=== PATIENT | male | born 1970 | race Caucasian/White ===

== ENCOUNTER → 2017-08-06 | Outpatient (CLI) | payer OTHER ==
--- NOTE | ~2017-08-06 | 2DMMODE ---
[facility] [place] [address] 2 D/M-MODE ECHOCARDIOGRAM Name: ARY ANGEL GALE Room #: REG [facility]#: [id number] Admission: 08/06/17 Attend Phys: Tay Torres, Discharge: Date of : 70 Date of Service: 08/06/17 1355 Report #: [id number] THIS REPORT FOR: //name// APPROVED REPORT Study performed: 08/06/2017 14:11:09 EXAM: Comprehensive 2D, Doppler, and color-flow Echocardiogram Patient Location: Out-Patient Status: routine BSA: 2.27 HR: 80 bpm BP: 144/91 mmHg Rhythm: NSR Other Information Study Quality: Adequate Indications Chest Pain Hx: HTN, HLP, obesity, family hx of CAD. 2D Dimensions RVDd: 37.18 mm LVEF(%): 54.91 (>50%) IVSd: 10.96 (7-11mm) LVOT Diam: 22.48 (18-24mm) LVDd: 47.97 mm PWd: 10.83 (7-11mm) Ascending Ao: 33.29 (22-36mm) LVDs: 34.29 (25-40mm) Aortic Root: 35.18 mm Regan's LVEF: 54.91 % Volumes Left Atrial Volume (Systole) Single Plane 4CH: 32.84 mL Single Plane 2CH: 60.15 mL LA ESV Index: 22.00 mL/m2 Aortic Valve AoV Peak Kyler.: 1.37 m/s AO Peak Gr.: 7.46 mmHg LVOT Max P.79 mmHg LVOT Max V: 0.97 m/s SERVANDO Vmax: 2.83 cm2 Mitral Valve E/A Ratio: 1.2 [facility] [place] [address] 2 D/M-MODE ECHOCARDIOGRAM Name: ARY ANGEL HOUSTON Room #: [facility]#: [id number] Admission: 08/06/17 Attend Phys: Tay Torres, Discharge: Date of : 70 Date of Service: 08/06/17 1355 Report #: [id number] MV Decel. Time: 230.60 ms MV E Max Kyler.: 0.71 m/s MV A Kyler.: 0.61 m/s MV PHT: 66.87 ms IVRT: 72.66 ms Pulmonary Valve PV Peak Kyler.: 1.03 m/s PV Peak Gr.: 4.23 mmHg Pulmonary Vein P Vein S: 0.51 m/s P Vein A: 0.31 m/s P Vein D: 0.58 m/s P Vein A Dur.: 93.4 msec P Vein S/D Ratio: 0.88 Tricuspid Valve RAP Estimate: 5.00 mmHg Left Ventricle The left ventricle is normal size. There is normal LV segmental wall motion. There is normal left ventricular wall thickness. Left ventricular systolic function is normal. LVEF is 55-60%. The left ventricular diastolic function is normal. Right Ventricle The right ventricle is normal size. The right ventricular systolic function is normal. Atria The left atrium size is normal. The right atrium size is normal. Aortic Valve The aortic valve is normal in structure. No aortic regurgitation is present. There is no aortic valvular stenosis. Mitral Valve The mitral valve is normal in structure. Trace mitral regurgitation. No evidence of mitral valve stenosis. Tricuspid Valve The tricuspid valve is normal in structure. Trace tricuspid regurgitation. Unable to assess PA pressure. Pulmonic Valve The pulmonary valve is normal in structure. Trace pulmonic regurgitation. [address] [address] 2 D/M-MODE ECHOCARDIOGRAM Name: ARY ANGEL HOUSTON Room #: REG [facility]#: [id number] Admission: 08/06/17 Attend Phys: Tay Torres, Discharge: Date of : 70 Date of Service: 08/06/17 1355 Report #: [id number] Great Vessels The aortic root is normal in size. The ascending aorta is normal in size. IVC is normal in size and collapses >50% with inspiration. Pericardium There is no pericardial effusion. <Conclusion> The left ventricle is normal size. LVEF is 55-60%. The aortic valve is normal in structure. The mitral valve is normal in structure. Trace mitral regurgitation. The tricuspid valve is normal in structure. Trace tricuspid regurgitation. Unable to assess PA pressure. The pulmonary valve is normal in structure. Trace pulmonic regurgitation. There is no pericardial effusion. <ELECTRONICALLY SIGNED> By: Jose York MD 08/06/17 1355 1355 1355 Jose York MD /INF
== END ==
LOC: CV 08:19
DX: R07.2 Precordial pain (principal); I10 Essential (primary) hypertension; E78.5 Hyperlipidemia, unspecified; I25.10 Atherosclerotic heart disease of native coronary artery without angina pectoris